=== PATIENT | female | born 1940 | race Caucasian/White ===

== ENCOUNTER 2017-07-09 10:25 | Inpatient (IN) | payer OTHER, MEDICARE, BC ==
[2017-07-09] VITALS (9 sets, daily range): BP systolic 114–167; BP diastolic 61–72; PULSE 65–84; RESP 16; TEMP 96.6–99.1; O2SAT 92–96
[~2017-07-09] VITALS: Ht 157.5 cm; Wt 84.0 kg
[2017-07-09] MEDS ORDERED: LIPI10TA PO (10:38)
[2017-07-09] MEDS ORDERED: VITA1000 PO (10:38)
[2017-07-09] MEDS ORDERED: FLAX10002 PO (10:38)
[2017-07-09] MEDS ORDERED: BISO5TAB5 PO (10:38)
[2017-07-09] MEDS ORDERED: ASPI1TAB57 PO (10:38)
[2017-07-09] MEDS ORDERED: HYDR12.56 PO (10:38)
[2017-07-09] MEDS ORDERED: VITA200C3 PO (10:38)
[2017-07-09] MEDS ORDERED: MAGN64 PO (10:38)
[2017-07-09] MEDS ORDERED: AMLO5TAB2 PO (10:38)
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
[2017-07-09] MEDS ORDERED: KETOROLAC TROMETHAMINE 60 MG/2 ML (IM) VIAL IM ONE (11:30)
[2017-07-09] MEDS ORDERED: ORPHENADRINE INJ 60 MG/2 ML AMP IM ONE (11:30)
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
[2017-07-09 12:08] LABS: AUTOMATED NEUTROPHIL # 9.6 TH/MM3 (1.8-7.7); BASOPHIL # 0.1 TH/MM3 (0-0.2); BASOPHIL % 0.5 % (0.0-2.0); EOSINOPHIL % 0.4 % (0.0-4.0); HEMO FLAGS DIFF FINAL; LYMPH % 10.5 % (9.0-44.0); LYMPHOCYTE # 1.2 TH/MM3 (1.0-4.8); MEAN CELL VOLUME 91.9 FL (80.0-100.0); MEAN CORPUSCULAR HEMOGLOBIN 30.8 PG (27.0-34.0); MEAN CORPUSCULAR HGB CONC 33.5 % (32.0-36.0); MONO % 5.9 % (0.0-8.0); NEUT % 82.7 % (16.0-70.0); PLATELET COUNT 184 TH/MM3 (150-450); RED BLOOD COUNT 5.01 MIL/MM3 (4.00-5.30); RED CELL DISTRIBUTION WIDTH 13.3 % (11.6-17.2); WHITE BLOOD COUNT 11.6 TH/MM3 (4.0-11.0)
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
[2017-07-09 12:19] LABS: APTT (PATIENT) 24.1 SEC (24.3-30.1); PROTHROMBIN TIME - PATIENT 10.6 SEC (9.8-11.6)
[2017-07-09 12:34] LABS: ALT (GPT) 34 U/L (10-53); ANION GAP 6 MEQ/L (5-15); AST (GOT) 50 U/L (15-37); BICARBONATE 28.9 MEQ/L (21.0-32.0); BLOOD UREA NITROGEN 25 MG/DL (7-18); CHLORIDE 104 MEQ/L (98-107); GLOMERULAR FILTRATION RATE 63 ML/MIN (>89); POTASSIUM 3.3 MEQ/L (3.5-5.1); SODIUM (NA) 139 MEQ/L (136-145)
[2017-07-09 12:36] LABS: ALKALINE PHOSPHATASE 61 U/L (45-117); TOTAL BILIRUBIN ADULT 0.7 MG/DL (0.2-1.0)
[2017-07-09] MEDS ORDERED: MISCELLANEOUS NURSING INFORMATION XX SCH (15:00)
[2017-07-09] MEDS ORDERED: ONDANSETRON HCL 4 MG/2 ML VIAL IV PUSH PRN (15:00)
[2017-07-09] MEDS ORDERED: ACETAMINOPHEN/HYDROcodone 325 MG/5 MG TAB PO PRN (15:00)
[2017-07-09] MEDS ORDERED: CHLORHEXIDINE GLUCONATE 2 % 1 PACK (2 CLOTHS) TOP PRN (15:00)
[2017-07-09] MEDS ORDERED: HYDROmorphone HCL PF 1 MG/ML VIAL IVP PRN (15:00)
[2017-07-09] MEDS ORDERED: SODIUM CHLORIDE 0.9% FLUSH 10 ML FLUSH IV FLUSH PRN (15:00)
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
[2017-07-09] MEDS: SODIUM CHLOR 0.9% 1000 ML INJ 1,000 ML IV SCH (15:55)
[2017-07-09] MEDS: ACETAMINOPHEN/HYDROcodone 325 MG/5 MG TAB PO PRN ×2 (17:10→23:03)
[2017-07-09] MEDS: DOCUSATE SODIUM 100 MG CAP PO SCH ×2 (17:11→19:52)
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
[2017-07-10] VITALS (7 sets, daily range): BP systolic 110–181; BP diastolic 62–79; PULSE 66–89; RESP 16–18; TEMP 96.8–98.1; O2SAT 93–99
[2017-07-10] MEDS: CHLORHEXIDINE GLUCONATE 2 % 1 PACK (2 CLOTHS) TOP SCH ×2 (04:00→20:08)
[2017-07-10] MEDS: SODIUM CHLOR 0.9% 1000 ML INJ 1,000 ML IV SCH ×3 (04:46→20:06)
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
[2017-07-10] MEDS ORDERED: RESP: ALBUTEROL 2.5 MG/IPRATROPIUM 0.5 MG NEB (PRN) NEB (08:00)
[2017-07-10] MEDS ORDERED: HYDROmorphone HCL PF 1 MG/ML VIAL IVP PRN (08:00)
[2017-07-10] MEDS: METHOCARBAMOL 500 MG TAB PO SCH ×4 (08:00→20:00)
[2017-07-10] MEDS: RESP: ALBUTEROL 2.5 MG/IPRATROPIUM 0.5 MG NEB (SCH) NEB ×2 (08:00→20:28)
[2017-07-10 08:19] LABS: AUTOMATED NEUTROPHIL # 6.4 TH/MM3 (1.8-7.7); BASOPHIL % 0.5 % (0.0-2.0); EOSINOPHIL # 0.1 TH/MM3 (0-0.4); EOSINOPHIL % 1.3 % (0.0-4.0); HEMATOCRIT 41.8 % (35.0-46.0); HEMO FLAGS DIFF FINAL; LYMPH % 20.2 % (9.0-44.0); LYMPHOCYTE # 1.8 TH/MM3 (1.0-4.8); MEAN CELL VOLUME 92.9 FL (80.0-100.0); MEAN CORPUSCULAR HEMOGLOBIN 31.4 PG (27.0-34.0); MEAN CORPUSCULAR HGB CONC 33.8 % (32.0-36.0); MONO % 7.9 % (0.0-8.0); NEUT % 70.1 % (16.0-70.0); PLATELET COUNT 154 TH/MM3 (150-450); RED CELL DISTRIBUTION WIDTH 13.5 % (11.6-17.2); WHITE BLOOD COUNT 9.1 TH/MM3 (4.0-11.0)
[2017-07-10] MEDS: ACETAMINOPHEN 1000 MG/100 ML 100 ML IV SCH ×2 (08:30→20:08)
[2017-07-10] MEDS: HYDROCHLOROTHIAZIDE 12.5 MG CAP PO SCH (08:31)
[2017-07-10] MEDS: DOCUSATE SODIUM 50 MG/SENNA 8.6 MG TAB PO SCH ×2 (08:31→19:59)
[2017-07-10] MEDS: POLYETHYLENE GLYCOL 17 GM PKG PO SCH ×2 (08:32→08:38)
[2017-07-10] MEDS: amLODIPine BESYLATE 5 MG TAB PO SCH (08:32)
[2017-07-10] MEDS: LIDOCAINE HCL 5% PATCH T-DERMAL SCH (08:33)
[2017-07-10 08:49] LABS: BICARBONATE 27.6 MEQ/L (21.0-32.0); POTASSIUM 3.2 MEQ/L (3.5-5.1)
[2017-07-10] MEDS ORDERED: [UNRECOGNIZED DRUG - OTHER] PO SCH (09:00)
[2017-07-10] MEDS ORDERED: BISOPROLOL 5 MG PO SCH (09:00)
[2017-07-10] MEDS ORDERED: LACTULOSE SYRUP 20 GM/30 ML CUP PO PRN (09:00)
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
--- NOTE | 2017-07-10 13:34 | RADRPT ---
EXAM DATE/TIME: 07/10/2017 11:46 [facility] COMPARISON: No previous studies available for comparison. INDICATIONS : Patient with a history of pneumothorax needs chest tube. MEDICAL HISTORY : Asthma Irregular heart rhythm Hypercholesterolemia HTN SURGICAL HISTORY : Cardiac stent placement ENCOUNTER: Initial ACUITY: 1 day PAIN SCORE: 5/10 LOCATION: Bilateral chets FLUORO TIME: 0.8 minutes IMAGE SERIES: 1 SEDATION TIME: 10 minutes 1.) 200 mcg fentanyl (Sublimaze) IV 2.) DEVICE(S): 1.) 10 Macedonian non-locking catheter PROCEDURE : 1. Fluoroscopically guided chest tube placement. 2. Conscious sedation with continuous EKG and oximetry monitoring. The risks, benefits and alternatives to the procedure were explained and verbal and written consent w as obtained. The site was prepped in sterile fashion. Full sterile technique was used, including ca p, mask, sterile gloves and gown and a large sterile sheet. Hand hygiene and 2% chlorhexidine and/or betadine/alcohol prep was utilized per protocol for cutaneous antisepsis. The skin and subcutaneous tissues were infiltrated with local anesthetic solution. With fluoroscopic guidance the chest was punctured between the first and second interspace and the pr escribed catheter was placed in the lung apex. Wall suction was applied. Post procedure images demon strate satisfactory position of the tube. The catheter was sutured in place and a Percu-Stay was mala lied. Conscious sedation was performed with the prescribed dosages and duration as above in the presence of an independent trained radiology nurse to assist in the monitoring of the patient. EKG and oximetry remained stable throughout the procedure. The patient tolerated the procedure well and there were n o complications. The patient was sent to post anesthesia recovery in stable condition. CONCLUSION: Uncomplicated chest tube placement as above. Damian Finn MD on July 10, 2017 at 13:29 Board Certified Radiologist. This report was verified electronically.
--- NOTE | 2017-07-10 15:08 | PD.RAD ---
Post Procedure Progress Note Pre Procedure Diagnosis: (1) Pneumothorax Post Procedure Diagnosis: (1) Pneumothorax Procedure Date: Jul 10, 2017 Supervising Radiologist: Damian Finn Proceduralist/Assist: Alesha Bowden, RT(R), Sophia Conti RT(R)(CV) Anesthesia: Local Plan of Activity Patient to Unit: Nursing Unit Patient Condition: Good See PACS Report for procedural detail/treatment Drainage Procedure Procedure 1 Imaging Guidance: Fluoroscopy Side: Right Procedure Type: Chest Tube Non-Tunneled Procedure: Placement Drainage: Pleurovac Damian Finn MD Jul 10, 2017 15:08
--- NOTE | 2017-07-10 16:41 | RADRPT ---
EXAM DATE/TIME: 07/10/2017 16:24 [facility] COMPARISON: CHEST SINGLE AP, July 10, 2017, 5:20. INDICATIONS : Right side chest tube placement. MEDICAL HISTORY : Asthma. Irregular heart rythm. SURGICAL HISTORY : Cardiac stent placement ENCOUNTER: Initial ACUITY: 1 day PAIN SCORE: 1/10 LOCATION: Right chest FINDINGS: Portable upright expiratory view of the chest demonstrates a right chest tube in place at the apex of the right hemithorax. The right pneumothorax has resolved. No other significant change is present. CONCLUSION: Resolution of the right pneumothorax following right chest tube placement. Walter Che MD on July 10, 2017 at 16:37 Board Certified Radiologist. This report was verified electronically.
[2017-07-10] MEDS: ATORVASTATIN 10 MG TAB PO SCH (19:59)
[2017-07-11] VITALS (11 sets, daily range): BP systolic 114–163; BP diastolic 61–99; PULSE 77–105; RESP 16–21; TEMP 97.3–98.6; O2SAT 92–98
[2017-07-11] MEDS: ACETAMINOPHEN 1000 MG/100 ML 100 ML IV SCH (02:00)
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
[2017-07-11] MEDS: METHOCARBAMOL 500 MG TAB PO SCH ×3 (05:42→21:42)
[2017-07-11] MEDS: SODIUM CHLOR 0.9% 1000 ML INJ 1,000 ML IV SCH (05:44)
[2017-07-11 06:07] LABS: AUTOMATED NEUTROPHIL # 6.1 TH/MM3 (1.8-7.7); BASOPHIL % 0.5 % (0.0-2.0); EOSINOPHIL # 0.2 TH/MM3 (0-0.4); EOSINOPHIL % 1.8 % (0.0-4.0); HEMO FLAGS DIFF FINAL; LYMPH % 17.9 % (9.0-44.0); LYMPHOCYTE # 1.5 TH/MM3 (1.0-4.8); MEAN CELL VOLUME 92.3 FL (80.0-100.0); MEAN CORPUSCULAR HEMOGLOBIN 31.3 PG (27.0-34.0); MEAN CORPUSCULAR HGB CONC 33.9 % (32.0-36.0); MONO % 8.3 % (0.0-8.0); NEUT % 71.5 % (16.0-70.0); PLATELET COUNT 125 TH/MM3 (150-450); RED BLOOD COUNT 4.01 MIL/MM3 (4.00-5.30); RED CELL DISTRIBUTION WIDTH 13.7 % (11.6-17.2); WHITE BLOOD COUNT 8.6 TH/MM3 (4.0-11.0)
[2017-07-11 06:35] LABS: BICARBONATE 28.7 MEQ/L (21.0-32.0); POTASSIUM 3.2 MEQ/L (3.5-5.1)
--- NOTE | 2017-07-11 07:41 | RADRPT ---
EXAM DATE/TIME: 07/11/2017 06:16 [facility] COMPARISON: CHEST SINGLE AP, July 10, 2017, 5:20. CHEST TUBE PLACEMENT, RIGHT, July 10, 2017, 11:46. [facility] EST EXPIRATION ONLY, July 10, 2017, 16:24. INDICATIONS : Evaluate right lung pneumothorax, chest tube fell out during the night, no shortness of breath, no pa in MEDICAL HISTORY : asthma SURGICAL HISTORY : Coronary artery stent. ENCOUNTER: Subsequent ACUITY: 2 days PAIN SCORE: 0/10 LOCATION: Bilateral chest FINDINGS: Interval removal of right apical chest tube. Very subtle right apical pneumothorax. Stable bilateral lower lung zone airspace disease. Cardiac mediastinal contours are within normal limits. Bony thorax is intact. CONCLUSION: 1. Interval removal of right apical chest tube with very subtle right apical pneumothorax. 2. Stable bilateral lower lung zone airspace disease, likely atelectasis. Vazquez Neumann MD on July 11, 2017 at 7:38 Board Certified Radiologist. This report was verified electronically.
[2017-07-11] MEDS: DOCUSATE SODIUM 50 MG/SENNA 8.6 MG TAB PO SCH ×2 (08:25→21:43)
[2017-07-11] MEDS: HYDROCHLOROTHIAZIDE 12.5 MG CAP PO SCH (08:25)
[2017-07-11] MEDS: amLODIPine BESYLATE 5 MG TAB PO SCH (08:25)
[2017-07-11] MEDS: LIDOCAINE HCL 5% PATCH T-DERMAL SCH (08:26)
[2017-07-11] MEDS: POLYETHYLENE GLYCOL 17 GM PKG PO SCH (08:26)
[2017-07-11] MEDS: RESP: ALBUTEROL 2.5 MG/IPRATROPIUM 0.5 MG NEB (SCH) NEB ×2 (08:53→11:55)
--- NOTE | 2017-07-11 13:43 | RADRPT ---
EXAM DATE/TIME: 07/11/2017 12:57 [facility] COMPARISON: CHEST EXPIRATION ONLY, July 11, 2017, 6:16. CHEST SINGLE AP, July 10, 2017, 5:20. INDICATIONS : Short of breath, evaluate right apical pneumothorax MEDICAL HISTORY : asthma SURGICAL HISTORY : Coronary artery stent. ENCOUNTER: Subsequent ACUITY: 2 days PAIN SCORE: 0/10 LOCATION: Right chest FINDINGS: No significant residual pneumothorax. Mild bibasilar airspace disease consistent with atelectasis. Ca rdiomediastinal contours are stable. Negative exam is unchanged. CONCLUSION: 1. No significant residual pneumothorax. 2. No significant interval change. Vazquez Neumann MD on July 11, 2017 at 13:39 Board Certified Radiologist. This report was verified electronically.
[2017-07-11] MEDS ORDERED: PERC5TAB12 PO (14:13)
[2017-07-11] MEDS: RESP: IPRATROPIUM 0.5 MG/2.5 ML NEB NEB SCH ×3 (16:18→23:44)
[2017-07-11] MEDS: ATORVASTATIN 10 MG TAB PO SCH (21:42)
[2017-07-12] VITALS (7 sets, daily range): BP systolic 137–178; BP diastolic 65–78; PULSE 80–100; RESP 17–20; TEMP 97.7–98; O2SAT 92–97
[2017-07-12] MEDS: RESP: IPRATROPIUM 0.5 MG/2.5 ML NEB NEB SCH ×5 (03:05→20:14)
--- NOTE | 2017-07-12 05:40 | RADRPT ---
EXAM DATE/TIME: 07/12/2017 04:49 [facility] COMPARISON: CHEST SINGLE AP, July 11, 2017, 12:57. INDICATIONS : Shortness of breath. MEDICAL HISTORY : Hypertension. Asthma SURGICAL HISTORY : Coronary artery stent. ENCOUNTER: Subsequent ACUITY: 3 days PAIN SCORE: 6/10 LOCATION: Bilateral chest FINDINGS: A single view of the chest demonstrates the lungs to be symmetrically aerated without evidence of mas s, confluent infiltrate or effusion. Mild streaky opacity remains at the lung bases. Atherosclerotic changes are again noted in the aorta. There is no pneumothorax. The cardiomediastinal contours are u nremarkable. Osseous structures are intact. CONCLUSION: Stable appearance with bibasilar atelectasis and/or scarring. Derek Herrera MD on July 12, 2017 at 5:38 Board Certified Radiologist. This report was verified electronically.
[2017-07-12] MEDS: METHOCARBAMOL 500 MG TAB PO SCH ×3 (06:33→20:00)
[2017-07-12] MEDS: POLYETHYLENE GLYCOL 17 GM PKG PO SCH (08:48)
[2017-07-12] MEDS: LIDOCAINE HCL 5% PATCH T-DERMAL SCH (08:55)
[2017-07-12] MEDS: DOCUSATE SODIUM 50 MG/SENNA 8.6 MG TAB PO SCH ×2 (08:55→20:01)
[2017-07-12] MEDS: HYDROCHLOROTHIAZIDE 12.5 MG CAP PO SCH (08:56)
[2017-07-12] MEDS: amLODIPine BESYLATE 5 MG TAB PO SCH (08:56)
[2017-07-12] MEDS ORDERED: SODIUM CHLOR 0.9% 1000 ML INJ 1,000 ML IV SCH (11:30)
[2017-07-12] MEDS: IBUPROFEN 800 MG TAB PO SCH ×3 (11:48→23:59)
[2017-07-12] MEDS: ENOXAPARIN SODIUM 40 MG/0.4 ML SYRINGE SQ SCH (11:48)
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
[2017-07-12] MEDS ORDERED: LACTULOSE SYRUP 20 GM/30 ML CUP PO ONE (12:00)
[2017-07-12] MEDS ORDERED: IOHEXOL 350 MG/ML 10 ML VIAL (for RAD DIAG) IVCONTRAST ONE (13:40)
--- NOTE | 2017-07-12 13:58 | RADRPT ---
EXAM DATE/TIME: 07/12/2017 13:26 [facility] COMPARISON: No previous studies available for comparison. INDICATIONS : Shortness of breath. IV CONTRAST: 72 cc Omnipaque 350 (iohexol) IV RADIATION DOSE: 12.42 CTDIvol (mGy) MEDICAL HISTORY : Cardiovascular disease. Hypertension. SURGICAL HISTORY : None. ENCOUNTER: Initial ACUITY: 1 day PAIN SCALE: 0/10 LOCATION: chest TECHNIQUE: Volumetric scanning of the chest was performed using a pulmonary embolism protocol MIP images were re constructed. Using automated exposure control and adjustment of the mA and/or kV according to patien t size, radiation dose was kept as low as reasonably achievable to obtain optimal diagnostic quality images. DICOM format image data is available electronically for review and comparison. Follow-up recommendations for detected pulmonary nodules are based at a minimum on nodule size and pa tient risk factors according to Fleischner Society Guidelines. FINDINGS: PULMONARY ARTERIES: No filling defects are seen in the pulmonary arteries through the segmental level. LUNGS: Consolidating airspace disease is identified in the right middle lobe and both lower lobes. There is generalized interstitial prominence. PLEURAE: Small bilateral pleural effusions are present. MEDIASTINUM: Heart is mildly enlarged. MUSCULOSKELETAL: Within normal limits for patient age. MISCELLANEOUS: A 4 cm mixed density mass is identified originating from the right thyroid lobe extending into the couch perior mediastinum. CONCLUSION: 1. No evidence of acute pulmonary embolism. 2. Bibasilar consolidating airspace disease. 3. Interstitial prominence and small bilateral effusions associated with cardiomegaly which represent mild congestion. 4. Substernal extension of a right thyroid lobe mass. Kevin Spivey MD on July 12, 2017 at 13:52 Board Certified Radiologist. This report was verified electronically.
[2017-07-12] MEDS ORDERED: POTASSIUM CHLORIDE 10 MEQ CONTROLLED RELEASE TAB PO ONE (17:00)
[2017-07-12] MEDS: ATORVASTATIN 10 MG TAB PO SCH (20:05)
[2017-07-12] MEDS ORDERED: LACTULOSE SYRUP 20 GM/30 ML CUP PO SCH (22:30)
[2017-07-13] VITALS (10 sets, daily range): BP systolic 119–178; BP diastolic 56–78; PULSE 75–115; RESP 17–21; TEMP 95.3–97.9; O2SAT 93–100
[2017-07-13] MEDS: RESP: IPRATROPIUM 0.5 MG/2.5 ML NEB NEB SCH ×6 (00:23→19:40)
[2017-07-13] MEDS: METHOCARBAMOL 500 MG TAB PO SCH ×3 (05:32→20:44)
[2017-07-13] MEDS: IBUPROFEN 800 MG TAB PO SCH ×3 (05:33→17:41)
[2017-07-13] MEDS: LACTULOSE SYRUP 20 GM/30 ML CUP PO SCH (08:26)
[2017-07-13] MEDS: amLODIPine BESYLATE 5 MG TAB PO SCH (08:27)
[2017-07-13] MEDS: HYDROCHLOROTHIAZIDE 12.5 MG CAP PO SCH (08:27)
[2017-07-13] MEDS: MAGNESIUM HYDROXIDE SUSP 30 ML CUP PO SCH ×2 (08:28→20:45)
[2017-07-13] MEDS: FAMOTIDINE 20 MG TAB PO SCH ×2 (08:28→20:44)
[2017-07-13] MEDS: POLYETHYLENE GLYCOL 17 GM PKG PO SCH (08:28)
[2017-07-13] MEDS: DOCUSATE SODIUM 50 MG/SENNA 8.6 MG TAB PO SCH ×2 (08:28→20:45)
[2017-07-13] MEDS: LIDOCAINE HCL 5% PATCH T-DERMAL SCH (08:28)
[2017-07-13] MEDS: ENOXAPARIN SODIUM 40 MG/0.4 ML SYRINGE SQ SCH (11:39)
[2017-07-13] MEDS ORDERED: OXYGENDME NAS.CANULA ×2 (12:29→16:52)
[2017-07-13] MEDS ORDERED: OXYGENTANK NAS.CANULA ×2 (12:29→16:52)
[2017-07-13] MEDS ORDERED: ACETAMINOPHEN/HYDROcodone 325 MG/5 MG TAB PO PRN (12:30)
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
[2017-07-13] MEDS: ATORVASTATIN 10 MG TAB PO SCH (20:44)
[2017-07-14] VITALS: BP 139/65; PULSE 63; RESP 18; TEMP 98; O2SAT 93
[2017-07-14] MEDS: IBUPROFEN 800 MG TAB PO SCH ×3 (00:03→12:00)
[2017-07-14] MEDS: RESP: IPRATROPIUM 0.5 MG/2.5 ML NEB NEB SCH ×4 (03:29→12:58)
[2017-07-14 04:00] VITALS: BP 142/67; PULSE 65; RESP 20; TEMP 96.9; O2SAT 93
[2017-07-14 04:59] VITALS: PULSE 67
[2017-07-14] MEDS: METHOCARBAMOL 500 MG TAB PO SCH ×2 (05:14→12:49)
[2017-07-14 05:35] LABS: AUTOMATED NEUTROPHIL # 3.3 TH/MM3 (1.8-7.7); BASOPHIL % 0.6 % (0.0-2.0); EOSINOPHIL # 0.5 TH/MM3 (0-0.4); EOSINOPHIL % 7.5 % (0.0-4.0); HEMATOCRIT 37.2 % (35.0-46.0); HEMO FLAGS DIFF FINAL; LYMPH % 25.9 % (9.0-44.0); LYMPHOCYTE # 1.6 TH/MM3 (1.0-4.8); MEAN CELL VOLUME 91.8 FL (80.0-100.0); MEAN CORPUSCULAR HEMOGLOBIN 31.4 PG (27.0-34.0); MEAN CORPUSCULAR HGB CONC 34.2 % (32.0-36.0); MONO % 11.9 % (0.0-8.0); NEUT % 54.1 % (16.0-70.0); PLATELET COUNT 149 TH/MM3 (150-450); RED BLOOD COUNT 4.05 MIL/MM3 (4.00-5.30); RED CELL DISTRIBUTION WIDTH 13.2 % (11.6-17.2); WHITE BLOOD COUNT 6.2 TH/MM3 (4.0-11.0)
[2017-07-14 05:37] LABS: BICARBONATE 31.8 MEQ/L (21.0-32.0)
[2017-07-14] MEDS ORDERED: OXYGENDME NAS.CANULA (06:39)
[2017-07-14] MEDS ORDERED: OXYGENTANK NAS.CANULA (06:39)
[2017-07-14] MEDS ORDERED: POTASSIUM CHLORIDE 20 MEQ CONTROLLED RELEASE TAB PO ONE (07:00)
[2017-07-14 08:00] VITALS: BP 131/67; PULSE 79; RESP 20; TEMP 98.4; O2SAT 95
[2017-07-14 08:37] VITALS: O2SAT 93
[2017-07-14] MEDS: POLYETHYLENE GLYCOL 17 GM PKG PO SCH (09:00)
[2017-07-14] MEDS: MAGNESIUM HYDROXIDE SUSP 30 ML CUP PO SCH (09:00)
[2017-07-14] MEDS: LIDOCAINE HCL 5% PATCH T-DERMAL SCH (09:00)
[2017-07-14] MEDS: DOCUSATE SODIUM 50 MG/SENNA 8.6 MG TAB PO SCH (09:00)
[2017-07-14] MEDS: LACTULOSE SYRUP 20 GM/30 ML CUP PO SCH (09:00)
[2017-07-14] MEDS: FAMOTIDINE 20 MG TAB PO SCH (10:03)
[2017-07-14] MEDS: HYDROCHLOROTHIAZIDE 12.5 MG CAP PO SCH (10:03)
[2017-07-14] MEDS: amLODIPine BESYLATE 5 MG TAB PO SCH (10:03)
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
[2017-07-14] MEDS ORDERED: NORC5TAB PO (11:25)
[2017-07-14 12:00] VITALS: BP 154/65; PULSE 86; RESP 21; TEMP 97.6; O2SAT 95
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
[2017-07-14] MEDS: ENOXAPARIN SODIUM 40 MG/0.4 ML SYRINGE SQ SCH (12:49)
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
== END 2017-07-14 15:15 | disposition home health service (06) | DRG 200 ==
LOC: NEPE 10:25 → NEDA 15:08 → N07A 15:58
PROVIDERS: ADMIT Surgery; ATTEND Surgery
PROC: 0W9930Z Drainage of Right Pleural Cavity with Drainage Device, Percutaneous Approach (ICD-10-PCS; principal; 2017-07-10)
DX: S27.0XXA Traumatic pneumothorax, initial encounter (principal); S27.321A Contusion of lung, unilateral, initial encounter; I10 Essential (primary) hypertension; S60.221A Contusion of right hand, initial encounter; J45.909 Unspecified asthma, uncomplicated; I25.2 Old myocardial infarction; M43.15 Spondylolisthesis, thoracolumbar region; I25.10 Atherosclerotic heart disease of native coronary artery without angina pectoris; E78.5 Hyperlipidemia, unspecified; E07.89 Other specified disorders of thyroid; V43.62XA Car passenger injured in collision with other type car in traffic accident, initial encounter; Y92.410 Unspecified street and highway as the place of occurrence of the external cause; Z88.1 Allergy status to other antibiotic agents; Z95.5 Presence of coronary angioplasty implant and graft
CPT/HCPCS: 32557; 70450; 71010; 71020; 71275; 72128; 72131; 72146; 73130; 80048; 80053; 85025; 85610; 85730; 94150; 94620; 94640; 94664; 94667; 94668; 96372; C1729; C1769; J0131; J1650; J1885; J2360; J3010; J7030; J7644; Q9967